=== PATIENT | male | born 1995 | race Caucasian/White ===

== ENCOUNTER 2016-09-05 00:41 | Emergency (ER) | payer OTHER ==
[~2016-09-05] VITALS: Ht 185.4 cm; Wt 86.0 kg
[2016-09-05 00:43] VITALS: BP 138/82; PULSE 118; RESP 16; TEMP 99.8; O2SAT 99
--- NOTE | 2016-09-05 01:10 | PD ---
HPI Chief Complaint: Fever Time Seen by Provider: 01:07 Travel History International Travel<30 days: No Contact w/Intl Traveler<30days: No Traveled to known affect area: No History of Present Illness HPI 21-year-old male presents to emergency department for evaluation of fever. He states that he has had cold symptoms for the past week. This has consisted of runny nose, headache, ear pain, sore throat and cough. He states that today he started running a high fever. He took some Tylenol at home. He denies any nausea vomiting. No bowel movement or diarrhea. No dysuria or frequency. The patient states that he is a student. He has a history of hypertension and asthma. [facility] Past Medical History Narrative Medical Hypertension, asthma Asthma: Yes Diminished Hearing: No Hypertension: Yes Tetanus Vaccination: < 5 Years Past Surgical History Narrative Surgical tONSILLECTOMY Social History Alcohol Use: No Tobacco Use: No Substance Use: No Allergies-Medications (Allergen,Severity, Reaction): Coded Allergies: No Known Allergies (Unverified , 09/05/16) Review of Systems Except as stated in HPI: all other systems reviewed are Neg Physical Exam Narrative GENERAL: Well-developed, well-nourished in no acute distress. Nontoxic appearing. HEAD: Normocephalic, atraumatic. EYES: Pupils equal round and reactive. Extraocular motions intact. No scleral icterus. No injection or drainage. ENT: TMs clear without erythema. The external auditory canals clear. Nose: clear . Posterior pharynx is pink and moist. No tonsillar edema or exudate. Uvula midline. Airway patent. NECK: Trachea midline.Supple, nontender, moves head freely. No central bony tenderness or spasm. CARDIOVASCULAR: Regular rate and rhythm without murmurs, gallops, or rubs. RESPIRATORY: Few fine next 3 wheezes. No Rales or rhonchi. GASTROINTESTINAL: Abdomen soft, non-tender, nondistended. No hepato-splenomegaly , or palpable masses. No guarding. EXTREMITIES: No clubbing, cyanosis, or edema. No joint tenderness, effusion, or edema noted. BACK: Nontender without deformity or crepitance. No flank tenderness. Data Data Last Documented VS Vital Signs Date Time Temp Pulse Resp B/P Pulse Ox O2 Delivery O2 Flow Rate FiO2 09/05/16 00:43 99.8 118 16 138/82 99 Orders Influenzae A/B Antigen (09/05/16 01:06) Ibuprofen (Motrin) (09/05/16 01:15) MDM Medical Decision Making Medical Screen Exam Complete: Yes Emergency Medical Condition: Yes Medical Record Reviewed: Yes Interpretation(s) Influenza: Negative Differential Diagnosis MDM: High Differential diagnoses: Pneumonia, bronchitis, URI, asthma, RAD, influenza Narrative Course pATIENT IS GIVEN mOTRIN 800 MG BY MOUTH. Diagnosis Primary Impression: URI (upper respiratory infection) Qualified Code: J06.9 - Viral upper respiratory tract infection Additional Impression: Asthma Qualified Code: J45.20 - Mild intermittent asthma without complication Patient Instructions: General Instructions Additional Instructions: Rest. Increase fluids. Zithromax. Prednisone. Continued usual inhaler. Follow-up the clinic at school in 3-7 days. Med/Other Pt SpecificInfo: Prescription(s) given Disposition: 01 DISCHARGE HOME Condition: Stable Juan Manuel Araya Sep 05, 2016 01:09
[2016-09-05] MEDS ORDERED: IBUPROFEN 800 MG TAB PO ONE (01:15)
[2016-09-05] MEDS ORDERED: PRED-503 PO (02:09)
[2016-09-05] MEDS ORDERED: ZITH250T PO (02:09)
== END 2016-09-05 02:40 | disposition home or self-care (01) ==
LOC: EDBD → NEPB 00:41
DX: J06.9 Acute upper respiratory infection, unspecified (principal); J45.909 Unspecified asthma, uncomplicated; H92.09 Otalgia, unspecified ear; R51 Headache; J02.9 Acute pharyngitis, unspecified; I10 Essential (primary) hypertension
CPT/HCPCS: 87804; 99283